=== PATIENT | female | born 1965 | race Caucasian/White ===

== ENCOUNTER → 2016-08-17 | Outpatient (CLI) | payer OTHER | LOC: EMI 10:45 | DX: M25.562 Pain in left knee (principal); R93.7 Abnormal findings on diagnostic imaging of other parts of musculoskeletal system | CPT/HCPCS: 73721 ==

== ENCOUNTER 2020-10-07 09:09 | Observation (INO) | payer OTHER ==
[~2020-10-07] VITALS: Ht 162.6 cm; Wt 79.4 kg
[~2020-10-07 09:09] MED LIST: ALL DAY ALLERGY10 M2 PO; BACTRIM DS TAB1 EACH PO; CLEOCIN HCL300 MG PO; KEFLEX CAP 500500 MG PO; NAPROSYN500 MG PO; NORVASC 5 MG TAB5 MG PO; OMEPRAZOLE20 MG PO; PROZAC 20 MG CA20 MG PO
[2020-10-07 10:15] LABS: HEMOGLOBIN 15.4 gm/dl (12.3-15.3); RED BLOOD COUNT 4.92 M/UL (4.00-5.10); WHITE BLOOD COUNT 13.8 K/UL (4.5-11.0)
[2020-10-07 11:23] LABS: BUN/CREATININE RATIO 7 (0-10)
[2020-10-07] MEDS ORDERED: BUPRENORPHIN-N1 EACH SL (22:35)
[2020-10-07] MEDS ORDERED: FLUOXETINE HCL40 MG PO (23:03)
[2020-10-07] MEDS ORDERED: AMLODIPINE BESY10 MG PO (23:03)
[2020-10-07] MEDS ORDERED: LISINOPRIL20 MG PO (23:04)
[2020-10-07] MEDS ORDERED: FLONASE 0.05% N16 GM (23:04)
[2020-10-07] MEDS ORDERED: LEVOCETIRIZINE D5 MG PO (23:04)
[2020-10-07] MEDS ORDERED: MELOXICAM7.5 MG PO (23:05)
[2020-10-07] MEDS ORDERED: MONTELUKAST SOD10 MG PO (23:05)
[2020-10-07] MEDS ORDERED: VITAMIN D31250 MCG PO (23:06)
[2020-10-07] MEDS ORDERED: TRAZODONE HCL150 MG PO (23:06)
[2020-10-07] MEDS ORDERED: PROMETHAZINE HC25 M1 PO (23:07)
[2020-10-08 06:00] LABS: WHITE BLOOD COUNT 11.5 K/UL (4.5-11.0)
[2020-10-08 06:01] LABS: HEMOGLOBIN 13.2 gm/dl (12.3-15.3); RED BLOOD COUNT 4.27 M/UL (4.00-5.10)
[2020-10-08 06:20] LABS: BUN/CREATININE RATIO 14 (0-10)
[2020-10-08] MEDS ORDERED: HYDROCODON-ACE1 EAC4 PO (11:19)
== END 2020-10-08 14:23 | disposition home or self-care (01) ==
LOC: ER1 09:09 → CDU 14:16 → M/S 14:16
PROVIDERS: Physician Assistant; Physician Assistant Medical; ADMIT Internal Medicine
DX: K36 Other appendicitis (principal); K21.9 Gastro-esophageal reflux disease without esophagitis; I10 Essential (primary) hypertension; M54.9 Dorsalgia, unspecified; G89.29 Other chronic pain; F17.210 Nicotine dependence, cigarettes, uncomplicated; J45.909 Unspecified asthma, uncomplicated; F41.9 Anxiety disorder, unspecified; F32.9 Major depressive disorder, single episode, unspecified; E78.5 Hyperlipidemia, unspecified; Z79.899 Other long term (current) drug therapy; Z20.822 Contact with and (suspected) exposure to COVID-19
CPT/HCPCS: 36415; 70450; 71045; 72132; 80048; 80053; 81001; 82550; 82553; 83605; 83735; 83874; 84484; 85025; 85027; 87040; 93005; 96374; 96375; 96376; 99285; G0378; J0690; J1100; J1170; J1885; J2001; J2250; J2270; J2405; J2543; J2704; J2710; J2765; J3010; J7120; Q9967; U0002

== ENCOUNTER 2020-10-25 12:44 | Emergency (ER) | payer OTHER ==
[~2020-10-25 12:44] MED LIST changes: +AMLODIPINE BESY10 MG PO; +BUPRENORPHIN-N1 EACH SL; +FLONASE 0.05% N16 GM; +FLUOXETINE HCL40 MG PO; +HYDROCODON-ACE1 EAC4 PO; +LEVOCETIRIZINE D5 MG PO; +LISINOPRIL20 MG PO; +MELOXICAM7.5 MG PO; +MONTELUKAST SOD10 MG PO; +PROMETHAZINE HC25 M1 PO; +TRAZODONE HCL150 MG PO; +VITAMIN D31250 MCG PO
[2020-10-25 14:28] LABS: HEMOGLOBIN 15.4 gm/dl (12.3-15.3); RED BLOOD COUNT 4.89 M/UL (4.00-5.10); WHITE BLOOD COUNT 8.4 K/UL (4.5-11.0)
[2020-10-25 14:59] LABS: BUN/CREATININE RATIO 13 (0-10)
[2020-10-25] MEDS ORDERED: BENTYL 20MG TAB20 MG PO (18:20)
[2020-10-25] MEDS ORDERED: ZOFRAN4 MG PO (18:20)
[2020-10-25] MEDS ORDERED: AUGMENTIN 875-1 EACH PO (18:20)
== END 2020-10-25 18:25 | disposition home or self-care (01) ==
LOC: ER1 12:44
PROVIDERS: Physician Assistant Medical
DX: K52.9 Noninfective gastroenteritis and colitis, unspecified (principal); K21.9 Gastro-esophageal reflux disease without esophagitis; I10 Essential (primary) hypertension; Z79.899 Other long term (current) drug therapy; F17.210 Nicotine dependence, cigarettes, uncomplicated
CPT/HCPCS: 71045; 80053; 81001; 82550; 82553; 83605; 83874; 84484; 85025; 87040; 93005; 96374; 96375; 99285; J2270; J2405; Q9967

== ENCOUNTER 2021-02-05 11:30 | Emergency (ER) | payer OTHER ==
[~2021-02-05 11:30] MED LIST changes: +AUGMENTIN 875-1 EACH PO; +BENTYL 20MG TAB20 MG PO; +ZOFRAN4 MG PO
== END 2021-02-05 12:52 | disposition left against medical advice (07) ==
LOC: ER1 11:30
DX: Z53.21 Procedure and treatment not carried out due to patient leaving prior to being seen by health care provider (principal)

== ENCOUNTER 2021-05-27 16:44 | Emergency (ER) | payer OTHER ==
[2021-05-27 17:29] LABS: HEMOGLOBIN 15.5 gm/dl (12.3-15.3); RED BLOOD COUNT 4.81 M/UL (4.00-5.10); WHITE BLOOD COUNT 6.8 K/UL (4.5-11.0)
[2021-05-27 18:12] LABS: BUN/CREATININE RATIO 12 (0-10)
== END 2021-05-28 06:25 | disposition home or self-care (01) ==
LOC: ER1 16:44
PROVIDERS: Family Medicine
DX: K52.9 Noninfective gastroenteritis and colitis, unspecified (principal); F10.129 Alcohol abuse with intoxication, unspecified; I10 Essential (primary) hypertension; Y90.8 Blood alcohol level of 240 mg/100 ml or more; J44.9 Chronic obstructive pulmonary disease, unspecified
CPT/HCPCS: 71045; 80053; 80307; 82150; 82962; 83605; 83690; 84702; 85025; 85610; 99284; G0480; J7030; Q9967

== ENCOUNTER 2021-09-25 12:36 | Emergency (ER) | payer OTHER ==
[2021-09-25 14:40] LABS: RED BLOOD COUNT 4.85 M/UL (4.00-5.10); WHITE BLOOD COUNT 6.7 K/UL (4.5-11.0)
[2021-09-25 15:09] LABS: BUN/CREATININE RATIO 7 (0-10)
[2021-09-25] MEDS ORDERED: PROVENTIL HFA6.7 GM INH (17:21)
== END 2021-09-25 18:00 | disposition home or self-care (01) ==
LOC: ER1 12:36
PROVIDERS: Emergency Medicine
DX: J44.9 Chronic obstructive pulmonary disease, unspecified (principal); J06.9 Acute upper respiratory infection, unspecified; Z20.822 Contact with and (suspected) exposure to COVID-19; I10 Essential (primary) hypertension; F17.200 Nicotine dependence, unspecified, uncomplicated
CPT/HCPCS: 0240U; 36600; 71045; 80053; 82550; 82553; 82803; 83605; 83880; 84484; 85025; 85379; 87040; 93005; 94640; 96374; 99285; J2405; Q9967

== ENCOUNTER → 2022-02-08 | Outpatient (CLI) | payer OTHER ==
[~2022-02-08] MED LIST changes: +PROVENTIL HFA6.7 GM INH
== END ==
LOC: KOH-I 13:14
DX: F17.210 Nicotine dependence, cigarettes, uncomplicated (principal)
CPT/HCPCS: 71271